=== PATIENT | female | born 1965 | race Asian ===

== ENCOUNTER 2017-03-22 10:24 | Inpatient (IN) | payer MEDICAID, OTHER ==
[~2017-03-22] VITALS: Ht 160 cm; Wt 67.6 kg
[~2017-03-22 10:24] MED LIST: CIPR-278 PO; CITA20TA9 PO; FERR-89 PO
[2017-03-22 11:13] LABS: AMPHET/METH SCREEN,URINE POSITIVE (NEGATIVE); BARBITURATE SCREEN, URINE NEGATIVE (NEGATIVE); BENZODIAZEPINES SCREEN,URINE NEGATIVE (NEGATIVE); CANNABINOID SCREEN,URINE NEGATIVE (NEGATIVE); COCAINE SCREEN,URINE NEGATIVE (NEGATIVE); METHADONE SCREEN, URINE NEGATIVE (NEGATIVE); OPIATE SCREEN,URINE NEGATIVE (NEGATIVE); PHENCYCLIDINE SCREEN,URINE NEGATIVE (NEGATIVE)
[2017-03-22 11:13] LABS: BASOPHILS % (AUTO) 0.6 % (0.0-2.0); EOSINOPHILS % (AUTO) 4.6 % (1.0-6.0); HEMATOCRIT 36.6 % (36-46); HEMOGLOBIN 11.4 g/dL (12.0-16.0); LYMPHOCYTES # (AUTO) 2.2 K/uL (1.0-4.8); LYMPHOCYTES % (AUTO) 25.2 % (22.0-44.0); MEAN CORPUSCULAR HEMOGLOBIN 20.7 pg (26.0-34.0); MEAN CORPUSCULAR HGB CONC 31.1 G/dL (31.0-37.0); MEAN CORPUSCULAR VOLUME 67 fL (80-100); MONOCYTES # (AUTO) 0.5 K/uL (0.1-1.0); MONOCYTES % (AUTO) 6.1 % (2.0-9.0); NEUTROPHILS # (AUTO) 5.6 K/uL (1.8-7.7); NEUTROPHILS % (AUTO) 63.5 % (40.0-70.0); PLATELET COUNT (AUTO) 333 K/uL (150-450); RED BLOOD CELL COUNT(AUTO) 5.49 MIL/uL (4.00-5.20); RED CELL DISTRIBUTION WIDTH 14.8 % (11.5-14.5)
[2017-03-22 11:24] LABS: ANION GAP 11 mmol/L (8-16); CALCIUM, TOTAL 8.6 mg/dL (8.8-10.5); CARBON DIOXIDE 27 mmol/L (22-29); CHLORIDE 100 mmol/L (98-107); GLOMERULAR FILTR. RATE CALC > 60 mL/min (>60); GLUCOSE,RANDOM 114 mg/dL (70-110); POTASSIUM 3.2 mmol/L (3.5-5.1); SODIUM SERUM 138 mmol/L (136-145); UREA NITROGEN, BLOOD 17 mg/dL (7-18)
[2017-03-22 11:30] LABS: ALANINE AMINOTRANSFERASE 26 U/L (12-78); ALBUMIN 3.5 g/dL (3.4-5.0); ALKALINE PHOSPHATASE 81 U/L (46-116); ASPARTATE AMINOTRANSFERASE 25 U/L (15-37); BILIRUBIN,TOTAL 0.3 mg/dL (0.1-1.0); TOTAL PROTEIN, SERUM 7.5 g/dL (6.4-8.2)
[2017-03-22] MEDS ORDERED: ZOLPIDEM TARTRATE 10 MG TABLET PO PRN (11:30)
[2017-03-22] MEDS ORDERED: HALOPERIDOL 5 MG TABLET PO PRN (11:30)
[2017-03-22] MEDS ORDERED: POTASSIUM CHLORIDE 20 MEQ ER TABLET PO ONE (12:00)
[2017-03-22 12:46] LABS: HCG,QUAL RESULT NEGATIVE (NEGATIVE)
[2017-03-22] MEDS ORDERED: IBUPROFEN 600 MG TABLET PO ONE (16:45)
[2017-03-22 19:35] VITALS: BP 114/79
[2017-03-22 20:59] LABS: APPEARANCE,URINE CLOUDY (CLEAR); BILIRUBIN,URINE NEGATIVE (NEGATIVE); GLUCOSE, URINE (UA) NEGATIVE (NEGATIVE); KETONES,URINE NEGATIVE (NEGATIVE); LEUKOCYTE ESTERASE ,URINE MODERATE (NEGATIVE); OCCULT BLOOD,URINE SMALL (NEGATIVE); PH,URINE 5.5 (5.0-8.0); PROTEIN,URINE TRACE (NEGATIVE); UROBILINOGEN,URINE 0.2 mg/dL (<=1.0)
[2017-03-22 21:06] LABS: BACTERIA,URINE Many /HPF (None Seen); NITRATE,URINE POSITIVE (NEGATIVE); SQUAMOUS EPITHELIAL CELL,UR Moderate /LPF (None Seen); WBC,URINE 51-100 /HPF (0-5)
[2017-03-23 06:17] VITALS: BP 140/100
[2017-03-23 07:24] LABS: CHOL/HDL RATIO 2.8 (3.9-5.7)
[2017-03-23 08:00] VITALS: BP 132/73
[2017-03-23] MEDS ORDERED: POTASSIUM CHLORIDE 20 MEQ ER TABLET PO ONE (14:00)
[2017-03-23 17:13] VITALS: BP 134/80
[2017-03-23] MEDS: QUEtiapine FUMARATE 25 MG TABLET PO SCH (17:43)
[2017-03-23] MEDS: FERROUS SULFATE 325 MG EC TABLET PO SCH (17:44)
[2017-03-23] MEDS: LORazepam 2 MG TABLET PO PRN (19:37)
[2017-03-23] MEDS: CITALOPRAM HYDROBROMIDE 20 MG TABLET PO SCH (20:46)
[2017-03-24 08:58] LABS: ANION GAP 6 mmol/L (8-16); CALCIUM, TOTAL 8.5 mg/dL (8.8-10.5); CARBON DIOXIDE 28 mmol/L (22-29); CHLORIDE 105 mmol/L (98-107); CREATININE 0.64 mg/dL (0.60-1.30); GLOMERULAR FILTR. RATE CALC > 60 mL/min (>60); GLUCOSE,RANDOM 89 mg/dL (70-110); POTASSIUM 4.3 mmol/L (3.5-5.1); SODIUM SERUM 139 mmol/L (136-145); UREA NITROGEN, BLOOD 17 mg/dL (7-18)
[2017-03-24] MEDS ORDERED: LEVOFLOXACIN 500 MG TABLET PO SCH (09:00)
[2017-03-24] MEDS: QUEtiapine FUMARATE 25 MG TABLET PO SCH ×2 (09:10→16:55)
[2017-03-24] MEDS: FERROUS SULFATE 325 MG EC TABLET PO SCH ×2 (09:10→16:55)
[2017-03-24 17:20] VITALS: BP 89/49
[2017-03-24] MEDS: CITALOPRAM HYDROBROMIDE 20 MG TABLET PO SCH (20:24)
[2017-03-25 06:40] VITALS: BP 134/100
[2017-03-25] MEDS: LORazepam 2 MG TABLET PO PRN (06:41)
[2017-03-25] MEDS: QUEtiapine FUMARATE 25 MG TABLET PO SCH ×2 (09:05→16:22)
[2017-03-25] MEDS: NITROFURANTOIN/NITROFURAN MAC 100 MG CAPSULE [MACROBID] PO SCH ×2 (09:05→16:22)
[2017-03-25] MEDS: FERROUS SULFATE 325 MG EC TABLET PO SCH ×2 (09:05→16:22)
[2017-03-25 11:04] VITALS: BP 149/100
[2017-03-25 16:39] VITALS: BP 148/90
[2017-03-25] MEDS: CITALOPRAM HYDROBROMIDE 20 MG TABLET PO SCH (20:56)
[2017-03-26 04:20] VITALS: BP 144/94
[2017-03-26] MEDS: LORazepam 2 MG TABLET PO PRN (06:26)
[2017-03-26] MEDS: QUEtiapine FUMARATE 25 MG TABLET PO SCH ×2 (09:05→16:13)
[2017-03-26] MEDS: NITROFURANTOIN/NITROFURAN MAC 100 MG CAPSULE [MACROBID] PO SCH ×2 (09:05→16:13)
[2017-03-26] MEDS: FERROUS SULFATE 325 MG EC TABLET PO SCH ×2 (09:06→16:13)
[2017-03-26 12:56] VITALS: BP 157/98
[2017-03-26] MEDS: CITALOPRAM HYDROBROMIDE 20 MG TABLET PO SCH (20:08)
[2017-03-27 04:10] VITALS: BP 166/86
[2017-03-27] MEDS: LORazepam 2 MG TABLET PO PRN (06:33)
[2017-03-27 08:00] VITALS: BP 140/90
[2017-03-27] MEDS ORDERED: QUET25TA PO (08:48)
[2017-03-27] MEDS ORDERED: MACR100 PO (08:49)
[2017-03-27] MEDS: FERROUS SULFATE 325 MG EC TABLET PO SCH (08:57)
[2017-03-27] MEDS: QUEtiapine FUMARATE 25 MG TABLET PO SCH (08:57)
[2017-03-27] MEDS: NITROFURANTOIN/NITROFURAN MAC 100 MG CAPSULE [MACROBID] PO SCH (08:57)
== END 2017-03-27 10:00 | disposition home or self-care (01) | DRG 750 ==
LOC: EMS 10:26 → 3EI 18:50
PROVIDERS: ADMIT Psychiatry & Neurology Psychiatry; ATTEND Psychiatry & Neurology Child & Adolescent Psychiatry
DX: F20.0 Paranoid schizophrenia (principal); F32.2 Major depressive disorder, single episode, severe without psychotic features; E87.6 Hypokalemia; D50.9 Iron deficiency anemia, unspecified; N39.0 Urinary tract infection, site not specified; F15.10 Other stimulant abuse, uncomplicated; F12.159 Cannabis abuse with psychotic disorder, unspecified; F29 Unspecified psychosis not due to a substance or known physiological condition; Z79.899 Other long term (current) drug therapy
CPT/HCPCS: 87086; 99285; G0480

== ENCOUNTER 2017-04-24 00:10 | Inpatient (IN) | payer MEDICAID, OTHER ==
[~2017-04-24] VITALS: Ht 160 cm; Wt 68.7 kg
[~2017-04-24 00:10] MED LIST changes: -CIPR-278 PO; +MACR100 PO; +QUET25TA PO
[2017-04-24 02:04] LABS: BASOPHILS % (AUTO) 0.6 % (0.0-2.0); HEMATOCRIT 32.7 % (36-46); HEMOGLOBIN 10.4 g/dL (12.0-16.0); LYMPHOCYTES # (AUTO) 1.3 K/uL (1.0-4.8); LYMPHOCYTES % (AUTO) 17.8 % (22.0-44.0); MEAN CORPUSCULAR HEMOGLOBIN 21.7 pg (26.0-34.0); MEAN CORPUSCULAR HGB CONC 31.9 G/dL (31.0-37.0); MEAN CORPUSCULAR VOLUME 68 fL (80-100); MONOCYTES # (AUTO) 0.5 K/uL (0.1-1.0); MONOCYTES % (AUTO) 7.4 % (2.0-9.0); NEUTROPHILS # (AUTO) 5.2 K/uL (1.8-7.7); NEUTROPHILS % (AUTO) 70.2 % (40.0-70.0); PLATELET COUNT (AUTO) 215 K/uL (150-450); RED CELL DISTRIBUTION WIDTH 16.5 % (11.5-14.5)
[2017-04-24 02:10] LABS: ANION GAP 10 mmol/L (8-16); CALCIUM, TOTAL 8.2 mg/dL (8.8-10.5); CARBON DIOXIDE 27 mmol/L (22-29); CHLORIDE 107 mmol/L (98-107); CREATININE 0.73 mg/dL (0.60-1.30); GLOMERULAR FILTR. RATE CALC > 60 mL/min (>60); GLUCOSE,RANDOM 132 mg/dL (70-110); POTASSIUM 3.4 mmol/L (3.5-5.1); SODIUM SERUM 144 mmol/L (136-145); UREA NITROGEN, BLOOD 13 mg/dL (7-18)
[2017-04-24 02:16] LABS: ALANINE AMINOTRANSFERASE 29 U/L (12-78); ALBUMIN 3.3 g/dL (3.4-5.0); ALKALINE PHOSPHATASE 110 U/L (46-116); ASPARTATE AMINOTRANSFERASE 24 U/L (15-37); BILIRUBIN,TOTAL 0.2 mg/dL (0.1-1.0); TOTAL PROTEIN, SERUM 6.6 g/dL (6.4-8.2)
[2017-04-24 02:22] LABS: AMPHET/METH SCREEN,URINE NEGATIVE (NEGATIVE); BARBITURATE SCREEN, URINE NEGATIVE (NEGATIVE); BENZODIAZEPINES SCREEN,URINE NEGATIVE (NEGATIVE); CANNABINOID SCREEN,URINE NEGATIVE (NEGATIVE); COCAINE SCREEN,URINE NEGATIVE (NEGATIVE); METHADONE SCREEN, URINE NEGATIVE (NEGATIVE); OPIATE SCREEN,URINE NEGATIVE (NEGATIVE); PHENCYCLIDINE SCREEN,URINE NEGATIVE (NEGATIVE)
[2017-04-24] MEDS ORDERED: ZOLPIDEM TARTRATE 10 MG TABLET PO PRN (02:30)
[2017-04-24] MEDS ORDERED: LORazepam 2 MG TABLET PO ONE (02:30)
[2017-04-24] MEDS ORDERED: DiphenhydrAMINE HCL 25 MG CAPSULE PO ONE (02:30)
[2017-04-24] MEDS ORDERED: HALOPERIDOL 5 MG TABLET PO ONE (02:30)
[2017-04-24] MEDS ORDERED: ACETAMINOPHEN 325 MG TABLET PO ONE (02:30)
[2017-04-24 11:50] VITALS: BP 138/95
[2017-04-24 16:15] VITALS: BP 134/64
[2017-04-24] MEDS ORDERED: INFLUENZA VIRUS VACCINE QVS 2017-18 (3YR+)/PF 60 MCG/0.5 ML SYRINGE IM ONE (16:15)
[2017-04-25 01:17] VITALS: BP 125/92
[2017-04-25] MEDS: LORazepam 2 MG TABLET PO PRN ×3 (02:33→18:29)
[2017-04-25] MEDS: HALOPERIDOL 5 MG TABLET PO PRN (08:35)
[2017-04-25 08:43] VITALS: BP 142/94
[2017-04-25 08:52] LABS: CHOL/HDL RATIO 2.8 (3.9-5.7)
[2017-04-25 16:11] VITALS: BP 139/77
[2017-04-25] MEDS: TraZODone HCL 150 MG TABLET PO SCH (20:59)
[2017-04-26 03:41] VITALS: BP 136/78
[2017-04-26 07:31] LABS: APPEARANCE,URINE CLOUDY (CLEAR); BILIRUBIN,URINE NEGATIVE (NEGATIVE); GLUCOSE, URINE (UA) NEGATIVE (NEGATIVE); KETONES,URINE NEGATIVE (NEGATIVE); LEUKOCYTE ESTERASE ,URINE LARGE (NEGATIVE); NITRATE,URINE NEGATIVE (NEGATIVE); OCCULT BLOOD,URINE MODERATE (NEGATIVE); PROTEIN,URINE POS 1+ (NEGATIVE); UROBILINOGEN,URINE 0.2 mg/dL (<=1.0)
[2017-04-26 07:45] LABS: BACTERIA,URINE Few /HPF (None Seen); SQUAMOUS EPITHELIAL CELL,UR Few /LPF (None Seen); WBC,URINE 51-100 /HPF (0-5)
[2017-04-26] MEDS: VENLAFAXINE HCL 150 MG ER CAPSULE PO SCH (08:22)
[2017-04-26 08:56] VITALS: BP 139/93
[2017-04-26] MEDS: NITROFURANTOIN/NITROFURAN MAC 100 MG CAPSULE [MACROBID] PO SCH ×2 (11:54→16:30)
[2017-04-26 16:00] VITALS: BP 131/81
[2017-04-26] MEDS: LORazepam 2 MG TABLET PO PRN (16:30)
[2017-04-26] MEDS: TraZODone HCL 150 MG TABLET PO SCH (20:33)
[2017-04-27 06:27] VITALS: BP 138/70
[2017-04-27 08:00] VITALS: BP 123/76
[2017-04-27] MEDS: VENLAFAXINE HCL 150 MG ER CAPSULE PO SCH (08:06)
[2017-04-27] MEDS: NITROFURANTOIN/NITROFURAN MAC 100 MG CAPSULE [MACROBID] PO SCH ×2 (08:06→16:35)
[2017-04-27] MEDS: LORazepam 2 MG TABLET PO PRN ×2 (12:18→16:35)
[2017-04-27] MEDS: HALOPERIDOL 5 MG TABLET PO PRN ×2 (12:18→16:35)
[2017-04-27 16:02] VITALS: BP 127/88
[2017-04-27] MEDS: TraZODone HCL 150 MG TABLET PO SCH (20:27)
[2017-04-28 06:41] VITALS: BP 134/78
[2017-04-28 08:17] VITALS: BP 119/84
[2017-04-28] MEDS: VENLAFAXINE HCL 150 MG ER CAPSULE PO SCH (08:49)
[2017-04-28] MEDS: NITROFURANTOIN/NITROFURAN MAC 100 MG CAPSULE [MACROBID] PO SCH ×2 (08:49→16:10)
[2017-04-28] MEDS: LORazepam 2 MG TABLET PO PRN (16:31)
[2017-04-28] MEDS: HALOPERIDOL 5 MG TABLET PO PRN (16:31)
[2017-04-28 16:39] VITALS: BP 121/75
[2017-04-28] MEDS: TraZODone HCL 150 MG TABLET PO SCH (20:52)
[2017-04-29 06:29] VITALS: BP 125/72
[2017-04-29 08:00] VITALS: BP 118/73
[2017-04-29] MEDS: VENLAFAXINE HCL 150 MG ER CAPSULE PO SCH (08:03)
[2017-04-29] MEDS: NITROFURANTOIN/NITROFURAN MAC 100 MG CAPSULE [MACROBID] PO SCH (08:03)
[2017-04-29] MEDS: LORazepam 2 MG TABLET PO PRN (08:03)
[2017-04-29] MEDS: HALOPERIDOL 5 MG TABLET PO PRN (09:09)
[2017-04-29 16:02] VITALS: BP 131/82
[2017-04-29] MEDS ORDERED: TRAZ150 PO (17:22)
[2017-04-29] MEDS ORDERED: VENL-68 PO (17:23)
== END 2017-04-29 18:25 | disposition home or self-care (01) | DRG 751 ==
LOC: EMS 00:12 → B3A 10:42
PROVIDERS: ADMIT Psychiatry & Neurology Child & Adolescent Psychiatry; ATTEND Psychiatry & Neurology Child & Adolescent Psychiatry
DX: F29 Unspecified psychosis not due to a substance or known physiological condition (principal); R45.851 Suicidal ideations; Z91.410 Personal history of adult physical and sexual abuse; Z91.411 Personal history of adult psychological abuse; Z28.21 Immunization not carried out because of patient refusal
CPT/HCPCS: 87081; 87086; 99285; G0480